=== PATIENT | male | born 1980 | race Caucasian/White ===

== ENCOUNTER 2016-05-08 20:28 | Inpatient (IN) | payer OTHER ==
[2016-05-08] MEDS ORDERED: SODIUM CHLORIDE 0.9% 2,000 ML ONE (21:21)
[2016-05-08] MEDS ORDERED: CEFTRIAXONE 2 GRAM DUPLEX 50 ML IV ONE (21:21)
[2016-05-08] MEDS ORDERED: DIPHTH,PERTUSS(ACELL),TET VAC 0.5 ML VIAL IM V ONE (21:21)
[2016-05-08 21:40] LABS: ABSOLUTE NEUTROPHIL COUNT 7.9 K/mm3 (1.8-7.7); BASO % 0.3 % (0.2-1.0); EOS # 0.1 (0.0-0.5); EOS % 1.1 % (0.9-2.9); HEMATOCRIT 33.1 % (32.0-52.0); HEMOGLOBIN 11.8 gm/l (14.0-18.0); IMM NEUT% 0.2 % (0-1); LYMPH # 2.9 (1.0-4.8); LYMPH % 23.9 % (15-45); MEAN CELL VOLUME 85.3 fl (80.0-94.0); MEAN CORPUSCULAR HEMOGLOBIN 30.4 pg (27.0-31.0); MEAN CORPUSCULAR HGB CONC 35.6 g/dl (33.0-37.0); MEAN PLATELET VOLUME 9.2 fl (7.4-10.4); MONO % 8.4 % (4-12); NEUT % 66.1 % (43-75); PLATELET COUNT 287 K/mm3 (130-400); RED CELL DISTRIBUTION WIDTH 12.2 % (11.5-14.5)
[2016-05-08 21:52] LABS: ALB/GLOB RATIO 1.3 (>1.0); CALCIUM 8.8 mg/dL (8.6-10.3)
[2016-05-08 21:54] LABS: C-REACTIVE PROTEIN 5.3 mg/dl (<1.0)
[2016-05-08 23:00] VITALS: BMI 26.8
[2016-05-08] MEDS ORDERED: VANCOMYCIN HCL 1.25 G in SODIUM CHLORIDE 0.9% 250 ML IV ONE (23:00)
[2016-05-08] MEDS ORDERED: BISACODYL 5 MG TABLET.EC PO PRN (23:11)
[2016-05-08] MEDS ORDERED: BLISTEX LIPSTICK 1 EACH TP PRN (23:11)
[2016-05-08] MEDS ORDERED: BISACODYL 10 MG SUP PR PRN (23:11)
[2016-05-08] MEDS ORDERED: SODIUM CHLORIDE 0.9% 100 ML IV PRN (23:11)
[2016-05-08] MEDS ORDERED: MAGNESIUM HYDROXIDE 30 ML UDCUP PO PRN (23:11)
[2016-05-08] MEDS ORDERED: MENTHOL/CETYLPYRD 1 EACH LOZENGE PO PRN (23:11)
[2016-05-08] MEDS ORDERED: KETOROLAC TROMETHAMINE 15 MG/ML VIAL IV PRN (23:13)
[2016-05-08] MEDS ORDERED: ONDANSETRON 4 MG/2ML 2 ML VIAL IV PRN (23:13)
[2016-05-08] MEDS ORDERED: MORPHINE SULFATE 2 MG/ML SYRINGE IV PRN (23:13)
[2016-05-08] MEDS ORDERED: SODIUM CHLORIDE 0.9% 1,000 ML IV SCH (23:15)
[2016-05-08] MEDS ORDERED: NICOTINE 14 MG PATCH 1 EACH TD PRN (23:22)
[2016-05-09] MEDS ORDERED: CEFAZOLIN SODIUM 1 GRAM PREMIX 50 ML IV ONE (02:46)
[2016-05-09] MEDS ORDERED: PUMP TUBING ONE (03:01)
[2016-05-09] MEDS: D5 1/2NS with 20 mEq KCL 1,000 ML IV SCH ×2 (03:13→08:26)
--- NOTE | 2016-05-09 06:03 | HP ---
ROMY BHATIA [id number] DATE OF ADMISSION: May 08, 2016 CHIEF COMPLAINT: Right middle finger redness and swelling. HISTORY OF PRESENT ILLNESS: The patient is a 35-year-old male who reports getting a sliver in his right middle finger on Monday of this last week when he was at work. He pulled out the sliver but had some persisting pain on he noted some festering and some redness with a little bit of pus discharge. He tried to open it up a little bit and clean it out with a dental like tool but with the soreness, he jumped and just tore the skin. With the ongoing pain and redness, he went to [place] earlier today on Monday, and they marked his redness and streaking on his hand but having to wait there, he felt the redness was progressing and came here instead. He was seen by the emergency room here and orthopedics here, given antibiotics and referred for observation. PAST MEDICAL HISTORY: Reported to be negative. PAST SURGICAL HISTORY: Remarkable for ruptured appendicitis. ALLERGIES: NO KNOWN DRUG ALLERGIES. MEDICATIONS: He takes ibuprofen or Tylenol for any pains. SOCIAL HISTORY: He works at [employer]. Lives by himself, no kids. He smokes half pack of cigarettes a day. Alcohol, no recent alcohol. Did have some marijuana for New Years. No particular alevism affiliation. Hobbies include helping older folks fix things. FAMILY HISTORY: Father is 58 and healthy. Mom is 52 and has some knee arthritis and drinks some. REVIEW OF SYSTEMS: Eyes, ears, nose and throat, he reports his throat is dry. He has no breathing complaints, no lung complaints, no heart complaints. Stomach is okay, no vomiting, no diarrhea. No urinary complaints. Arms are okay. Legs are okay. No brain complaints. He does have an upper denture. Reported that his upper teeth stuck out quite a bit, and he ultimately lost these teeth. PHYSICAL EXAM: GENERAL: Non-toxic slightly tired male, fidgets with hand some. VITAL SIGNS: Blood pressure 126/72, pulse 125, respirations 20, temperature 100.1, 97% saturations on room air. HEAD: Head is normocephalic, atraumatic. EYES: Are unremarkable. EARS: Are normal, tympanic membranes are normal. NOSE: Is unremarkable without drainage. MOUTH: Has upper denture. Lower teeth are unremarkable. Posterior pharynx is unremarkable. NECK: Is supple without mass or adenopathy. LUNGS: Clear to auscultation bilaterally. HEART: Regular rate and rhythm without murmur. ABDOMEN: Soft, nontender, nondistended. Bowel sounds are normal. No rebound or guarding. Lower midline incision in his abdomen and a small umbilical hernia is noted. GENITOURINARY: Exam is deferred. EXTREMITIES: Grossly unremarkable without edema. Right hand demonstrates some puffiness along the finger proximally and middle segment. The PIP joint area with a small 2 to 3 mm scab without discharge on the radial aspect of the finger. Some erythema streak noted on the ulnar aspect of the right middle finger. He is able to flatten his hand but not able to fully flex his fingers. A streak with mild erythema is noted on the dorsum of the hand form the knuckle to the wrist. Palm is nontender to compression. He has some tenderness on the back of the hand but no fluctuance or masses felt here. Wrist motion appears to be normal. Pulses are good throughout. NEUROLOGIC: Generally unremarkable, just uncomfortable. LABORATORY: White count 12.0, hemoglobin 11.8, platelets 287, sedimentation rate 45, lactate 0.3, CRP 5.3. Sodium 134, potassium 3.8, chloride 100, CO2 27, BUN 14, creatinine 0.9, glucose 101, AST 42, ALT 32, alkaline phosphatase 55. IMAGING: X-ray, soft tissue swelling right middle finger. No foreign body seen, no gas on preliminary review. ASSESSMENT AND PLAN: 1. Cellulitis right middle finger. Anticipate use of cefazolin and vancomycin. Appreciate orthopedic consult. They will anticipate rechecking in the morning to see if he will need a surgical intervention. 2. Venous thrombosis prophylaxis. Patient is felt to be low risk. 3. Immunization status: Plan to offer a tetanus shot. 4. History of smoking. Consider nicotine replacement if needed. cc: Babak Howard M.D. Jj Cortes M.D.
[2016-05-09 06:10] LABS: ABSOLUTE NEUTROPHIL COUNT 6.7 K/mm3 (1.8-7.7); BASO % 0.3 % (0.2-1.0); EOS # 0.2 (0.0-0.5); EOS % 1.4 % (0.9-2.9); HEMATOCRIT 33.4 % (32.0-52.0); HEMOGLOBIN 11.7 gm/l (14.0-18.0); IMM NEUT% 0.3 % (0-1); LYMPH # 2.6 (1.0-4.8); LYMPH % 24.6 % (15-45); MEAN CELL VOLUME 86.5 fl (80.0-94.0); MEAN CORPUSCULAR HEMOGLOBIN 30.3 pg (27.0-31.0); MEAN PLATELET VOLUME 9.5 fl (7.4-10.4); MONO % 9.8 % (4-12); NEUT % 63.6 % (43-75); PLATELET COUNT 286 K/mm3 (130-400); RED CELL DISTRIBUTION WIDTH 12.3 % (11.5-14.5)
[2016-05-09] MEDS ORDERED: VANCOMYCIN HCL 1 G in SODIUM CHLORIDE 0.9% 250 ML IV SCH (07:30)
--- NOTE | 2016-05-09 07:54 | RAD ---
Exam: Three-view right hand COMPARISON: None INDICATION: Right hand infection starting at middle finger. FINDINGS: PA, lateral and oblique views of the right hand were obtained. Soft tissue swelling is seen within the third finger, particularly about the PIP joint. No radiopaque foreign body or subcutaneous gas is seen. Underlying bones are unremarkable. Degenerative changes are incidentally noted within the fifth DIP joints where there is a prominent dorsal osteophyte. Bones otherwise unremarkable. IMPRESSION: Soft tissue swelling about the third finger, however no acute osseous abnormality is identified within the right hand. No radiographic evidence of osteomyelitis.
[2016-05-09] MEDS ORDERED: DOCUSATE SODIUM 100 MG CAPSULE PO SCH (09:00)
[2016-05-09] MEDS ORDERED: CEFAZOLIN SODIUM IV SCH ×3 (09:00)
[2016-05-09] MEDS ORDERED: SODIUM CHLORIDE NS ADD VANTAGE IV SCH ×3 (09:00)
--- NOTE | 2016-05-09 11:09 | PDOC43 ---
- Subjective Chief Complaint: finger cellulitis Patient reports pain a little better today. No other c/o. - Objective Vital Signs Temperature 97.7 F 05/09/16 07:27 Pulse Rate 77 05/09/16 07:27 Respiratory Rate 16 05/09/16 07:27 Blood Pressure 127/82 05/09/16 07:27 O2 Saturation by Pulse Oximetry 98 05/09/16 07:27 Oxygen Delivery Method Room Air Oxygen Flow Rate 0 Vital Signs Last 12 Hours Temp Pulse Resp BP Pulse Ox 05/09/16 07:27 97.7 F 77 16 127/82 98 05/09/16 07:00 16 05/09/16 05:20 97.6 F 78 16 123/80 98 05/09/16 05:00 16 05/09/16 00:40 99.6 F 104 20 140/71 97 Intake and Output 05/07/16 05/08/16 05/09/16 23:59 23:59 23:59 Output Total 100 Balance -100 General: Alert, Cooperative, No Acute Distress Lungs: Other (sl wheeze on breathing bilat) Cardiovascular: Regular Rate and Rhythm Abdomen: Soft, Normal Bowel Sounds, Non-Distended Extremities: Other (R middle finger with mild improvement in swelling. ulnar aspect still with erythema, but dorsum of hand has resolution of streaking. Able to flatten hand, no pain in palm. Flexion still limited.) Skin: Normal Color (erythema on finger continues, but improved.) Neurological: Normal Speech Psych/Mental Status: Normal Mood Laboratory 05/09/16 05:15 05/09/16 05:15 RBC 3.86 L Blood culture neg Current Medications: Current meds reviewed in EMR. Active Medications Benzocaine/Menthol (Cepacol) 1 each PO PRN PRN PRN Reason: Sore Throat Bisacodyl (Dulcolax) 10 mg AL DAILY PRN PRN Reason: Constipation Bisacodyl (Dulcolax) 5 mg PO DAILY PRN PRN Reason: Constipation Docusate Sodium (Colace) 100 mg PO BID [facility] Last Admin: 05/09/16 10:04 Dose: Not Given Potassium Chloride/Dextrose/Sod Cl (D51/2ns With 20 Meq Kcl) 1,000 mls @ 125 mls/hr IV .Q8H [facility] Last Admin: 05/09/16 08:26 Dose: 125 mls/hr Sodium Chloride (Sodium Chloride 0.9%) 100 mls @ 25 mls/hr IV PRN PRN PRN Reason: Flush Cefazolin Sodium 1 g/ Sodium (Chloride) 50 mls @ 300 mls/hr IV Q6H [facility] Last Admin: 05/09/16 10:02 Dose: 300 mls/hr Vancomycin HCl 1 g/ Sodium (Chloride) 250 mls @ 275 mls/hr IV Q8H [facility] PRN Reason: Protocol Ketorolac Tromethamine (Toradol) 15 mg IV Q6H PRN PRN Reason: Pain Last Admin: 05/09/16 03:14 Dose: 15 mg Magnesium Hydroxide (Milk Of Magnesia) 30 ml PO DAILY PRN PRN Reason: Constipation Morphine Sulfate (Morphine Sulfate) 2 mg IV Q2H PRN PRN Reason: Pain Nicotine (Nicoderm Cq) 1 each TD DAILY PRN PRN Reason: Withdrawal Symptoms Ondansetron HCl (Zofran) 4 mg IV Q4H PRN PRN Reason: Nausea/Vomiting Petrolatum/Paraffin/Mineral Oil (Blistex) 1 each TP PRN PRN PRN Reason: Dry and/or chapped lips Sodium Chloride (Normal Saline 10ml Flush) 10 - 50 ml IV PRN PRN PRN Reason: IV Flush Last Admin: 05/09/16 03:14 Dose: 10 ml Sodium Chloride (Normal Saline 10ml Flush) 10 ml IV Q8HR [facility] Last Admin: 05/09/16 10:04 Dose: Not Given - Problems: Assessment/Plan (1) Cellulitis of right middle finger Status: Acute Assessment/Plan: Started on Vancomycin, cefazolin. Cultures negative so far. (2) Smoking Status: Acute Assessment/Plan: Nicotine replacement ordered. VTE Prophylaxis: ambulatory pt, low risk. Disposition: To be determined. Additional Comments: municipal services manager indicates patient was fired today after calling in sick.
[2016-05-09 11:38] VITALS: BP 124/86
--- NOTE | 2016-05-09 11:40 | CONS ---
Shaggy BHATIA [id number] : 1980 ORTHOPEDIC HAND CONSULTATION DATE OF ADMISSION: May 08, 2016 DATE OF CONSULTATION: May 08, 2016 HISTORY OF PRESENT ILLNESS: Shaggy Bhatia is a 35-year-old male who was seen at the request of the emergency department physician Dr. Del Castillo for evaluation of a swollen infected right long finger. The patient was examined with his permission. His imaging studies and medical records are reviewed. HISTORY OF INJURY: He states that he got a sliver into the area of the PIP joint of his right long finger several days ago. He tried to pick at it with dental pick. He removed some of it but later the finger became swollen and had the characteristics of infection. He presented to [facility] Emergency Department earlier today and after waiting for a period of time in the waiting room he left. He then presented to the emergency department at [facility] where Dr. Del Castillo saw him and was concerned about finger infection. Well he was in [facility] Emergency Room. Someone had marked on his hand and outline of the area of erythema and he notes that this has gotten somewhat larger since he was in that emergency department earlier today. He states that he is able to make a fist, but he has some pain because of the swelling. He denies any numbness or tingling in his hand. He states that he is having some significant pain in the area. PAST MEDICAL HISTORY: He denies any history of systemic illnesses. PAST SURGICAL HISTORY: He denies any prior surgeries. ALLERGIES: He has no known drug allergies. MEDICATIONS: He denies taking any medications. SOCIAL HISTORY: He smokes up to a half a pack of cigarettes per day. He drinks alcohol occasionally. He is employed as a jiang. PHYSICAL EXAMINATION: GENERAL: The patient is a well nourished, well developed male who is cooperative with the examination. FOCUSED EXAM: Examination of the right hand indicates a small area of cellulitis on the dorsum of the hand overlying the third metacarpal and also the MP joint of the long finger. On the palmar surface we note some soft tissue swelling, there is no flexed posturing and there is no significant increase in pain with passive extension of the fingers. He is able to make a fist, although he does have some tenderness when he compresses his fingers. Also noted is the fact that he has a small puncture of the ulnar border of the long finger with the presence where apparently the sliver had entered his hand. DIAGOSTIC IMPRESSION: Infected right long finger. PLAN: At this point in time it does not appear that the patient has signs of a pyogenic flexor tenosynovitis although he is starting to develop some swelling. Dr. Diego, hospitalist, will be admitting him and place him on intravenous antibiotics. We will reassess his status in the morning. If his condition continues to worsen, then he may be a candidate for surgical treatment. We have discussed surgery with him, expected benefits, potential risks and complications and alternative methods of treatment. He appears to understand and is prepared for whatever needs to be done. Job [id number] cc: [facility]
[2016-05-09] MEDS ORDERED: VANCOMYCIN HCL 1 G in SODIUM CHLORIDE 0.9% 230 ML IV SCH (15:30)
--- NOTE | 2016-05-09 18:02 | DS ---
ROMY BHATIA [id number] DATE OF ADMISSION: May 08, 2016 DATE OF DISCHARGE: May 09, 2016 DISCHARGE DIAGNOSES: Cellulitis involving the right hand and the right third digit presumed to be bacterial. Organism is unknown. SUMMARY OF ADMISSION AND HOSPITAL COURSE: The patient is a 35-year-old male who recalls noticing a splinter in his finger on Monday. It was removed, but he developed festering pain and redness and discharge the following day. He tried drainage but it did not work. He was seen initially at [facility] and then returned to our hospital for further evaluation due to progression of his symptoms. He does not recall any work related injury. He believes he got the splinter on firewood at home. He was observed overnight, and orthopedic consultation was obtained with Dr. Babak Howard. He responded to Ancef and vancomycin and was felt to be medically stable for discharge on May 09, 2016. No surgical intervention was deemed necessary. PHYSICAL EXAM: VITAL SIGNS: His discharge vital signs showed a temperature of 97.7, pulse 71, blood pressure is 124/86, respirations 16, oxygen saturation 99% on room air. Body mass index is 26.8. Weight is 81.1 kilograms. GENERAL: This is a well-developed, well-nourished male in no acute distress. HEENT: Is unremarkable. LUNGS: Are clear to auscultation bilaterally. CARDIOVASCULAR: Exam reveals a regular rate and rhythm without a murmur. ABDOMEN: Is soft, nontender, nondistended with positive bowel sounds. EXTREMITIES: Show some persistent redness and swelling of the right third digit but the cellulitic area involving the dorsum of the hand is improving. There is no purulent drainage. There is a small scab on the medial aspect of the right third digit measuring less than a centimeter in size without drainage. LABORATORY STUDIES: He had a CBC on the day of discharge with a white count of 10.5, hemoglobin of 11.7, and a platelet count of 286,000. DIAGNOSTIC IMAGING STUDIES: Included an x-ray of the right hand. Soft tissue swelling was seen but no foreign body was identified and no subcutaneous gas was seen. DISPOSITION: Home. DISCHARGE CONDITION: Good. DISCHARGE MEDICATIONS: 1. Keflex 500 mg four times daily for 14 days. 2. Advil 400 mg every six hours as needed for pain. REFERRALS: He will follow up with Dr. Babak Howard by the end of the week. Cc: Babak Howard M.D.
== END 2016-05-09 13:03 | disposition home or self-care (01) | DRG 603 ==
LOC: ED 20:28 → MS 22:29 → OBSVTOIN 23:12
PROVIDERS: ADMIT Family Medicine; ATTEND Orthopaedic Surgery
DX: L03.011 Cellulitis of right finger (principal); B96.89 Other specified bacterial agents as the cause of diseases classified elsewhere; M65.9 Synovitis and tenosynovitis, unspecified; F14.21 Cocaine dependence, in remission; F15.21 Other stimulant dependence, in remission; F12.21 Cannabis dependence, in remission; F17.210 Nicotine dependence, cigarettes, uncomplicated